=== PATIENT | female | born 2000 | race Two or more races ===

== ENCOUNTER 2024-04-03 23:57 | Emergency (ER) | payer OTHER ==
[~2024-04-03] VITALS: Ht 154.9 cm; Wt 60.3 kg
[2024-04-04] MEDS ORDERED: 0.9 % SODIUM CHLORIDE 1,000 ML IV STA (03:23)
[2024-04-04] MEDS ORDERED: KETOROLAC TROMETHAMINE 30 MG VIAL IV STA (03:24)
[2024-04-04] MEDS ORDERED: KETOROLAC TROMETHAMINE 30 MG VIAL ONE (03:32)
[2024-04-04 04:07] LABS: HEMATOCRIT 37.6 % (36.0-45.00); HEMOGLOBIN 12.8 g/dL (12.0-15.00); MEAN CELL VOLUME 82.5 fL (80.00-100.00); MEAN CORPUSCULAR HEMOGLOBIN 28.2 pg (27.00-32.0); MEAN CORPUSCULAR HGB CONC 34.1 g/dl (32.0-36.0); PLATELET COUNT 278 K/uL (150-450); RED BLOOD COUNT 4.56 M/uL (4.00-6.00); RED CELL DISTRIBUTION WIDTH 14.2 % (11.5-14.5)
[2024-04-04 04:13] LABS: CALCIUM 8.9 mg/dL (8.5-10.1); CREATININE SERUM 0.6 mg/dL (0.55-1.02); GFR 123.88; POTASSIUM 4.01 mEq/L (3.5-5.1)
[2024-04-04 05:26] LABS: PH,URINE 6.5 (5.0-8.0); URINE APPEARANCE Clear; URINE BILIRRUBIN Negative (NEGATIVE); URINE BLOOD Negative; URINE COLOR Yellow; URINE GLUCOSE Negative (NEGATIVE); URINE KETONE Negative (NEGATIVE); URINE LEUKOCYTE Trace; URINE NITRATE Negative; URINE PROTEIN Negative (NEGATIVE); URINE UROBILINOGEN 0.2 E.U./dl
[2024-04-04 05:30] LABS: URINE BACTERIA 2172.5 uL (0.0-1933); URINE RBC 10.7 uL (0.0-20.8); URINE WBC 24.3 uL (0.0-23.2)
[2024-04-04 06:15] LABS: URINE CAST 0.29 uL (0.0-1.40)
== END 2024-04-04 08:10 | disposition home or self-care (01) ==
LOC: ER 23:59
DX: K59.00 Constipation, unspecified (principal); Z88.0 Allergy status to penicillin; Z91.013 Allergy to seafood